=== PATIENT | male | born 2000 | race Caucasian/White ===

== ENCOUNTER 2024-05-12 11:39 | Emergency (ER) | payer OTHER, SELFPAY ==
[~2024-05-12] VITALS: Ht 177.8 cm; Wt 124.9 kg
[2024-05-12] MEDS: GLUCAGON INJ 1MG VIAL IV STA (13:37)
[2024-05-12] MEDS ORDERED: PROT1TAB2 PO (17:43)
[2024-05-12 19:05] VITALS: BP 146/81; TEMP 97.5; O2SAT 99
== END 2024-05-12 19:05 | disposition home or self-care (01) ==
LOC: M ED 11:39
DX: T18.128A Food in esophagus causing other injury, initial encounter (principal); F10.10 Alcohol abuse, uncomplicated; Z88.1 Allergy status to other antibiotic agents
CPT/HCPCS: 71046; 96374; 99284; J1610